=== PATIENT | male | born 1935 | race Caucasian/White ===

== ENCOUNTER → 2023-12-01 12:58 | Outpatient (REF) | payer MEDICARE, SELFPAY ==
[2023-12-01 13:33] LABS: HDL Cholesterol 34 mg/dl; LDL Cholesterol, Calculated 139 mg/dl; Total Cholesterol 201 mg/dl (50-199); Triglyceride 140 mg/dl (10-149); Very Low Density Lipoprotein 28 mg/dl (0-30)
== END ==
LOC: OLABN 12:58
PROVIDERS: ATTENDING PHYSICIAN Student in an Organized Health Care Education/Training Program
DX: I48.91 Unspecified atrial fibrillation (principal); I63.9 Cerebral infarction, unspecified
CPT/HCPCS: 36415; 80061

== ENCOUNTER → 2024-03-01 10:40 | Outpatient (REF) | payer MEDICARE, SELFPAY ==
[2024-03-01 12:12] LABS: HDL Cholesterol 32 mg/dl; LDL Cholesterol, Calculated 133 mg/dl; Total Cholesterol 183 mg/dl (50-199); Triglyceride 92 mg/dl (10-149); Very Low Density Lipoprotein 18 mg/dl (0-30)
== END ==
LOC: OLABN 10:40
PROVIDERS: ATTENDING PHYSICIAN Student in an Organized Health Care Education/Training Program
DX: I48.91 Unspecified atrial fibrillation (principal); I63.9 Cerebral infarction, unspecified
CPT/HCPCS: 36415; 80061

== ENCOUNTER → 2024-03-28 10:06 | Outpatient (REF) | payer MEDICARE, SELFPAY ==
[2024-03-28 10:59] LABS: Hematocrit 46.7 % (39.0-52.0); Hemoglobin 15.3 g/dL (13.0-18.0); Mean Corp Hgb Conc. 32.8 g/dL (33.0-37.0); Mean Corpuscular Hgb 31.5 pg (27.0-31.0); Mean Corpuscular Volume 96.3 fL (80.0-94.0); Mean Platelet Volume 14.4 fL (7.4-10.4); Platelet Count 122 10^3/uL (130-400); Red Blood Cell Count 4.85 10^6/uL (4.70-6.10); Red Cell Dist. Width 13.2 % (11.5-14.5); White Blood Cell Count 6.5 10^3/uL (4.8-10.8)
[2024-03-28 11:27] LABS: ALT (SGPT) 14 U/L (0-50); AST (SGOT) 19 U/L (17-59); Albumin 3.3 g/dl (3.5-5.0); Alkaline Phosphatase 76 U/L (38-126); Blood Urea Nitrogen 22 mg/dl (9-20); Calcium 9.3 mg/dl (8.4-10.2); Carbon Dioxide 27 mmol/L (22-30); Chloride 104 mmol/L (98-107); Glucose 74 mg/dl (70-99); Magnesium 2.2 mg/dl (1.6-2.3); Potassium 3.9 mmol/L (3.5-5.1); Sodium 138 mmol/L (135-145); Total Bilirubin 0.8 mg/dl (0.2-1.3); Total Protein 5.2 g/dl (6.3-8.2); eGFR > 60.00
[2024-03-28 11:35] LABS: NT-proBNP 830 pg/ml
== END ==
LOC: OLABN 10:06
PROVIDERS: ATTENDING PHYSICIAN Student in an Organized Health Care Education/Training Program
DX: I50.22 Chronic systolic (congestive) heart failure (principal); R60.9 Edema, unspecified
CPT/HCPCS: 36415; 80053; 83735; 83880; 85027

== ENCOUNTER → 2024-08-30 09:30 | Outpatient (REF) | payer MEDICARE, SELFPAY ==
[2024-08-30 10:37] LABS: HDL Cholesterol 32 mg/dl; LDL Cholesterol, Calculated 172 mg/dl; Total Cholesterol 226 mg/dl (50-199); Triglyceride 114 mg/dl (10-149); Very Low Density Lipoprotein 22 mg/dl (0-30)
== END ==
LOC: OLABN 09:30
PROVIDERS: ATTENDING PHYSICIAN Student in an Organized Health Care Education/Training Program
DX: I48.91 Unspecified atrial fibrillation (principal); I63.9 Cerebral infarction, unspecified
CPT/HCPCS: 36415; 80061

== ENCOUNTER → 2024-11-29 10:28 | Outpatient (REF) | payer MEDICARE, SELFPAY ==
[2024-11-29 12:06] LABS: HDL Cholesterol 28 mg/dl; LDL Cholesterol, Calculated 157 mg/dl; Total Cholesterol 208 mg/dl (50-199); Triglyceride 119 mg/dl (10-149); Very Low Density Lipoprotein 23 mg/dl (0-30)
== END ==
LOC: OLABN 10:28
PROVIDERS: ATTENDING PHYSICIAN Student in an Organized Health Care Education/Training Program
DX: I48.91 Unspecified atrial fibrillation (principal); I63.9 Cerebral infarction, unspecified
CPT/HCPCS: 36415; 80061

== ENCOUNTER → 2025-02-28 10:17 | Outpatient (REF) | payer MEDICARE, SELFPAY ==
[2025-02-28 11:09] LABS: HDL Cholesterol 28 mg/dl; LDL Cholesterol, Calculated 158 mg/dl; Total Cholesterol 218 mg/dl (50-199); Triglyceride 163 mg/dl (10-149); Very Low Density Lipoprotein 32 mg/dl (0-30)
== END ==
LOC: OLABN 10:17
PROVIDERS: ATTENDING PHYSICIAN Student in an Organized Health Care Education/Training Program
DX: I48.91 Unspecified atrial fibrillation (principal); I63.9 Cerebral infarction, unspecified
CPT/HCPCS: 36415; 80061

== ENCOUNTER → 2025-05-30 10:26 | Outpatient (REF) | payer MEDICARE, SELFPAY ==
[2025-05-30 11:42] LABS: HDL Cholesterol 29 mg/dl; LDL Cholesterol, Calculated 165 mg/dl; Very Low Density Lipoprotein 18 mg/dl (0-30)
== END ==
LOC: OLABN 10:26
PROVIDERS: ATTENDING PHYSICIAN Student in an Organized Health Care Education/Training Program
DX: I48.91 Unspecified atrial fibrillation (principal); I10 Essential (primary) hypertension
CPT/HCPCS: 36415; 80061

== ENCOUNTER → 2025-07-11 10:33 | Outpatient (REF) | payer MEDICARE, SELFPAY ==
[2025-07-11 11:27] LABS: ALT (SGPT) 17 U/L (0-50); AST (SGOT) 20 U/L (17-59); Albumin 3.2 g/dl (3.5-5.0); Alkaline Phosphatase 64 U/L (38-126); Blood Urea Nitrogen 23 mg/dl (9-20); Calcium 9.2 mg/dl (8.4-10.2); Carbon Dioxide 29 mmol/L (22-30); Chloride 105 mmol/L (98-107); Glucose 92 mg/dl (70-99); Potassium 4.0 mmol/L (3.5-5.1); Sodium 137 mmol/L (135-145); Total Protein 5.3 g/dl (6.3-8.2); eGFR > 60.00
== END ==
LOC: OLABN 10:33
PROVIDERS: ATTENDING PHYSICIAN Student in an Organized Health Care Education/Training Program
DX: I50.22 Chronic systolic (congestive) heart failure (principal)
CPT/HCPCS: 36415; 80053

== ENCOUNTER → 2025-07-12 09:36 | Outpatient (REF) | payer MEDICARE, MEDICAID, SELFPAY | LOC: MRI 09:36 | PROVIDERS: ATTENDING PHYSICIAN Ophthalmology; FAMILY PHYSICIAN Student in an Organized Health Care Education/Training Program | DX: H53.453 Other localized visual field defect, bilateral (principal) | CPT/HCPCS: 70553; A9575 ==

== ENCOUNTER → 2025-08-29 09:14 | Outpatient (REF) | payer MEDICARE, OTHER, SELFPAY ==
[2025-08-29 11:09] LABS: HDL Cholesterol 28 mg/dl; LDL Cholesterol, Calculated 173 mg/dl; Very Low Density Lipoprotein 25 mg/dl (0-30)
== END ==
LOC: OLABN 09:14
PROVIDERS: ATTENDING PHYSICIAN Student in an Organized Health Care Education/Training Program
DX: I48.91 Unspecified atrial fibrillation (principal); I63.9 Cerebral infarction, unspecified
CPT/HCPCS: 36415; 80061